=== PATIENT | male | born 1985 | race Caucasian/White ===

== ENCOUNTER 2018-02-18 12:43 | Inpatient (IN) | payer MEDICAID ==
[~2018-02-18] VITALS: Ht 170.2 cm; Wt 61.2 kg
[2018-02-18] MEDS ORDERED: NAPR-58 PO (12:57)
[2018-02-18] MEDS ORDERED: VENL-53 PO (12:57)
[2018-02-18] MEDS ORDERED: ZOLPIDEM TARTRATE 10 MG TABLET PO PRN (14:30)
[2018-02-18] MEDS ORDERED: LORazepam 2 MG TABLET PO PRN (14:30)
[2018-02-18] MEDS ORDERED: HALOPERIDOL 5 MG TABLET PO PRN (14:30)
[2018-02-18 16:34] VITALS: BP 121/74
[2018-02-18] MEDS ORDERED: ACETAMINOPHEN 325 MG TABLET PO PRN (18:00)
[2018-02-18] MEDS: MUPIROCIN CALCIUM 2% 22 GM OINTMENT TP SCH (20:50)
[2018-02-19 05:28] VITALS: BP 113/68
[2018-02-19 08:36] VITALS: BP 111/60
[2018-02-19] MEDS: MUPIROCIN CALCIUM 2% 22 GM OINTMENT TP SCH ×2 (08:58→16:44)
[2018-02-19] MEDS: NICOTINE 21 MG/24 HOUR PATCH TD SCH (09:02)
[2018-02-19] MEDS: RisperiDONE 1 MG TABLET PO SCH ×2 (11:00→20:14)
[2018-02-19] MEDS: VENLAFAXINE HCL 75 MG ER CAPSULE PO SCH (12:23)
[2018-02-19 16:30] VITALS: BP 107/64
[2018-02-19 20:14] VITALS: BP 112/68
[2018-02-19] MEDS: IBUPROFEN 600 MG TABLET PO PRN (20:14)
[2018-02-20] VITALS: BP 103/62
[2018-02-20 08:21] VITALS: BP 110/77
[2018-02-20] MEDS: RisperiDONE 1 MG TABLET PO SCH (09:00)
[2018-02-20] MEDS: MUPIROCIN CALCIUM 2% 22 GM OINTMENT TP SCH ×2 (09:05→16:18)
[2018-02-20] MEDS: NICOTINE 21 MG/24 HOUR PATCH TD SCH (09:06)
[2018-02-20] MEDS: VENLAFAXINE HCL 75 MG ER CAPSULE PO SCH (09:06)
[2018-02-20 16:00] VITALS: BP 116/64
[2018-02-20] MEDS: IBUPROFEN 600 MG TABLET PO PRN (16:18)
[2018-02-21 07:07] VITALS: BP 103/63
[2018-02-21 08:47] VITALS: BP 109/70
[2018-02-21] MEDS: VENLAFAXINE HCL 75 MG ER CAPSULE PO SCH (08:49)
[2018-02-21] MEDS: NICOTINE 21 MG/24 HOUR PATCH TD SCH (08:50)
[2018-02-21] MEDS: MUPIROCIN CALCIUM 2% 22 GM OINTMENT TP SCH ×2 (08:50→16:28)
[2018-02-21] MEDS: ARIPiprazole 10 MG TABLET PO SCH (08:50)
[2018-02-21] MEDS: IBUPROFEN 600 MG TABLET PO PRN (11:02)
[2018-02-21 16:16] VITALS: BP 109/66
[2018-02-22] MEDS: VENLAFAXINE HCL 75 MG ER CAPSULE PO SCH (09:06)
[2018-02-22] MEDS: ARIPiprazole 10 MG TABLET PO SCH (09:06)
[2018-02-22] MEDS: NICOTINE 21 MG/24 HOUR PATCH TD SCH (09:07)
[2018-02-22] MEDS: MUPIROCIN CALCIUM 2% 22 GM OINTMENT TP SCH ×2 (09:08→17:23)
[2018-02-22 10:00] VITALS: BP 108/60
[2018-02-22 11:39] VITALS: BP 116/71
[2018-02-22] MEDS: IBUPROFEN 600 MG TABLET PO PRN (12:33)
[2018-02-22 12:40] VITALS: BP 108/64
[2018-02-22 16:00] VITALS: BP 108/64
[2018-02-23 01:27] VITALS: BP 118/65
[2018-02-23 08:39] VITALS: BP 109/74
[2018-02-23] MEDS ORDERED: BACITRACIN 28.4 GM OINTMENT TP SCH (09:00)
[2018-02-23] MEDS: MUPIROCIN CALCIUM 2% 22 GM OINTMENT TP SCH (09:11)
[2018-02-23] MEDS: VENLAFAXINE HCL 75 MG ER CAPSULE PO SCH (09:11)
[2018-02-23] MEDS: ARIPiprazole 10 MG TABLET PO SCH (09:11)
[2018-02-23] MEDS: NICOTINE 21 MG/24 HOUR PATCH TD SCH (09:13)
[2018-02-23] MEDS ORDERED: VENL-67 PO (10:25)
[2018-02-23] MEDS ORDERED: ARIP10TA8 PO (10:25)
[2018-02-23] MEDS ORDERED: MUPI15CR TP (10:37)
[2018-02-23] MEDS ORDERED: BACI30OI10 TP (10:38)
== END 2018-02-23 15:00 | disposition home or self-care (01) | DRG 750 ==
LOC: EMS 12:47 → B2S 14:46
PROVIDERS: ADMIT Psychiatry & Neurology Child & Adolescent Psychiatry; ATTEND Psychiatry & Neurology Child & Adolescent Psychiatry
DX: F25.1 Schizoaffective disorder, depressive type (principal); E86.0 Dehydration; F32.9 Major depressive disorder, single episode, unspecified; F15.10 Other stimulant abuse, uncomplicated; F17.200 Nicotine dependence, unspecified, uncomplicated; F41.9 Anxiety disorder, unspecified; G47.00 Insomnia, unspecified; K21.9 Gastro-esophageal reflux disease without esophagitis; L08.9 Local infection of the skin and subcutaneous tissue, unspecified; Z59.0 Homelessness; Z71.6 Tobacco abuse counseling
CPT/HCPCS: 87081; 99285

== ENCOUNTER 2019-09-06 16:26 | Inpatient (IN) | payer MEDICAID, MEDICARE ==
[~2019-09-06] VITALS: Ht 172.7 cm; Wt 64.6 kg
[~2019-09-06 16:26] MED LIST: ARIP10TA8 PO; BACI30OI10 TP; MUPI15CR TP; VENL-67 PO
[2019-09-06] MEDS ORDERED: QUET300T2 PO (16:54)
[2019-09-06] MEDS ORDERED: RisperiDONE 1 MG TABLET PO ONE (17:15)
[2019-09-06] MEDS ORDERED: HydrOXYzine PAMOATE 50 MG CAPSULE PO ONE (17:15)
[2019-09-06] MEDS ORDERED: ZOLPIDEM TARTRATE 10 MG TABLET PO PRN (19:15)
[2019-09-06] MEDS ORDERED: QUEtiapine FUMARATE 100 MG TABLET PO PRN (19:15)
[2019-09-07] MEDS ORDERED: INFLUENZA VIRUS VACCINE QVS 2019-20 (3YR+)/PF 60 MCG/0.5 ML SYRINGE IM ONE (02:00)
[2019-09-07 08:07] VITALS: BP 93/58
[2019-09-07] MEDS: NICOTINE 21 MG/24 HOUR PATCH TD SCH (08:45)
[2019-09-07] MEDS: LORazepam 2 MG TABLET PO PRN ×2 (08:55→19:18)
[2019-09-07] MEDS: PARoxetine HCL 10 MG TABLET PO SCH (12:40)
[2019-09-07] MEDS ORDERED: LOPERAMIDE HCL 2 MG CAPSULE PO PRN (13:45)
[2019-09-07] MEDS ORDERED: PETROLATUM,WHITE 28 GM JELLY TP PRN (13:45)
[2019-09-07] MEDS ORDERED: DOCUSATE SODIUM 100 MG CAPSULE PO PRN (13:45)
[2019-09-07] MEDS ORDERED: NICOTINE 14 MG/24 HOUR PATCH TD PRN (13:45)
[2019-09-07] MEDS ORDERED: GuaiFENesin/D-METHORPHAN [SUGAR-FREE] 200-20MG/10 ML SYRUP UDCUP PO PRN (13:45)
[2019-09-07] MEDS ORDERED: CloNIDine HCL 0.1 MG TABLET PO PRN (13:45)
[2019-09-07] MEDS ORDERED: ONDANSETRON HCL 4 MG TABLET PO PRN (13:45)
[2019-09-07] MEDS ORDERED: MAGNESIUM HYDROXIDE SUSPENSION 30 ML UDCUP PO PRN (13:45)
[2019-09-07] MEDS ORDERED: MAG HYDROX/AL HYDROX/SIMETH ES 30 ML SUSPENSION UDCUP PO PRN (13:45)
[2019-09-07] MEDS ORDERED: ALBUTEROL SULFATE HFA 90 MCG/PUFF 8 GM INHALER IH PRN (13:45)
[2019-09-07] MEDS ORDERED: IBUPROFEN 400 MG TABLET PO PRN (13:45)
[2019-09-07 16:21] VITALS: BP 122/79
[2019-09-07] MEDS: QUEtiapine FUMARATE 300 MG TABLET PO SCH (20:34)
[2019-09-08 00:10] VITALS: BP 133/82
[2019-09-08] MEDS: LORazepam 2 MG TABLET PO PRN ×2 (06:04→16:36)
[2019-09-08] MEDS: PARoxetine HCL 10 MG TABLET PO SCH (08:02)
[2019-09-08] MEDS: NICOTINE 21 MG/24 HOUR PATCH TD SCH (08:11)
[2019-09-08 08:30] LABS: CHOL/HDL RATIO 3.2 (4.2-7.3)
[2019-09-08 17:00] VITALS: BP 117/77
[2019-09-08] MEDS: QUEtiapine FUMARATE 300 MG TABLET PO SCH (21:05)
[2019-09-09] MEDS ORDERED: OLANZapine 5 MG RAPDIS TABLET PO PRN (08:45)
[2019-09-09] MEDS: PARoxetine HCL 10 MG TABLET PO SCH (09:25)
[2019-09-09] MEDS: NICOTINE 21 MG/24 HOUR PATCH TD SCH (09:37)
[2019-09-09] MEDS: ACETAMINOPHEN 325 MG TABLET PO PRN (13:40)
[2019-09-09] MEDS ORDERED: QUEtiapine FUMARATE 200 MG TABLET PO SCH (21:00)
[2019-09-10] MEDS: PARoxetine HCL 10 MG TABLET PO SCH (09:36)
[2019-09-10] MEDS: NICOTINE 21 MG/24 HOUR PATCH TD SCH (09:36)
[2019-09-10] MEDS: LORazepam 2 MG TABLET PO PRN (12:51)
[2019-09-10 16:35] VITALS: BP 108/66
[2019-09-10] MEDS: ACETAMINOPHEN 325 MG TABLET PO PRN (16:43)
== END 2019-09-10 21:30 | disposition left against medical advice (07) | DRG 750 ==
LOC: EMS 16:27 → B3A 22:18
DX: F25.0 Schizoaffective disorder, bipolar type (principal); I95.9 Hypotension, unspecified; R45.851 Suicidal ideations; F10.10 Alcohol abuse, uncomplicated; F15.90 Other stimulant use, unspecified, uncomplicated; F41.0 Panic disorder [episodic paroxysmal anxiety]; F41.9 Anxiety disorder, unspecified; F17.210 Nicotine dependence, cigarettes, uncomplicated; K21.9 Gastro-esophageal reflux disease without esophagitis; Z88.8 Allergy status to other drugs, medicaments and biological substances; Z88.1 Allergy status to other antibiotic agents